=== PATIENT | female | born 1940 | race Caucasian/White ===

== ENCOUNTER → 2018-07-22 06:56 | Outpatient (CLI) | payer MEDICARE, SELFPAY ==
--- NOTE | 2018-07-22 07:00 | PET_ITS ---
EXAMINATION: FDG PET CT INDICATIONS: A 77-year-old female with reported history of pulmonary nodularity. COMPARISON EXAMINATION: CT of the chest report dated 07/03/18. INDEX LESION SIZE SUV INTERPRETATION Right upper hemithorax pulmonary parenchyma, right upper lobe 11.1 mm (frame 196) 2.5 Fulfills quantitative criteria for viable neoplasm, histopathologic analysis is recommended NON-INDEX LESION SIZE SUV INTERPRETATION Right lobe thyroid gland (n = 2) 11.4 mm largest (frame 220) 6.2 (max) May be further investigated with thyroid ultrasound TECHNIQUE: Following the intravenous administration of 16.2 mCi of F-18 deoxyglucose via the right antecubital fossa, multiplanar image acquisitions of the neck, chest, abdomen and pelvis to level of mid thigh, obtained at one hour post radiopharmaceutical administration contemporaneously interpreted with the current CT of the neck, chest, abdomen and pelvis to level of mid thigh, dated 07/22/[address] of the chest report dated 07/03/18 reveal: SERUM GLUCOSE LEVEL: 80 mg/dl. HEIGHT: 66 inches. WEIGHT: 150 lbs. FINDINGS: 1. A nodular focus of increased glucose metabolism is demonstrated in the right upper posterior hemithorax pulmonary parenchyma-right upper lobe generating a calculated maximum standard uptake value of 2.5. The maximal axial diameter of the corresponding parenchymal density on review of CT of the chest dated 07/22/18 is 11.1 mm (transverse). 2. Two separate foci of increased glucose concentration are defined in the right anterior neck, which appear to be contiguous to the superior and inferior poles of the right lobe of the thyroid colloid. The calculated maximum standard uptake value is 6.2. The maximal axial diameter of the corresponding largest, most conspicuous metabolic abnormality is approximately 11.4 mm (AP). 3. Normal physiologic distribution of the radiopharmaceutical is apparent in the hepatic (2.1) and splenic parenchyma, both renal units, bladder and visualized intestinal tract. There is uniform distribution of the radiopharmaceutical concentration defined in the visualized cerebellar hemispheres and cerebral cortical structures.? Diffuse intestinal tract activity is noted throughout all four quadrants of the abdominal-pelvic retroperitoneum, mesentery consistent with normal physiologic distribution of the radiopharmaceutical. Prominent glucose metabolism is defined in the anterior neck, laryngeal structures contiguous to the cricopharyngeus musculature most consistent with physiologic distribution of the radiopharmaceutical. Focal increased labeled glucose metabolism is manifest in the left upper anterolateral chest wall contiguous to the second rib corresponding to visualized trauma-fracture. Pertinent CT findings are as follows. CHEST: There are no additional parenchymal densities-nodules demonstrating discernible increased glucose metabolism. Several subcentimeter parenchymal densities are non-glucose avid. Atherosclerotic calcification is defined in the thoracic aorta without evidence of dilatation, aneurysm formation. Bilateral subcentimeter axillary and scattered mediastinal soft tissue densities demonstrate no evidence of facilitated glucose metabolism. A parenchymal density noted in the right posterobasilar lung field is ametabolic. ABDOMEN AND PELVIS: Atherosclerotic calcification is defined in the abdominal aorta without evidence of dilatation, aneurysm formation. Pelvic arterial calcification is observed. The uterus appears surgically absent. Bilateral subcentimeter inguinal soft tissue densities reveal no evidence of enhanced glucose metabolism. Calcification is defined in the right kidney. SKELETAL: Degenerative changes defined in the cervical, thoracic and lumbar spine demonstrate no evidence for glucose hypermetabolism. PET/PET/CT Tumor Base -Thigh Init IMPRESSION: 1. ABNORMAL EXAMINATION INDICATIVE OF MALIGNANT-VIABLE NEOPLASM. 2. Increased glucose concentration observed in the right upper posterior hemithorax pulmonary parenchyma, right upper lobe fulfills quantitative criteria for viable neoplasm. Histopathologic analysis is recommended. (Machuca et al, Annals of Internal Medicine, 138:724, 2003). 3. Facilitated FDG concentration defined in the right lobe of the thyroid gland in two separate nodular presentations may be further investigated with thyroid ultrasound secondary to the quantitative degree of uptake. (Hari Ortiz et al, Journal of Clinical Endocrinology and Metabolism 88:4100, 2003). 4. The increase in radiopharmaceutical concentration noted in the left chest wall-second rib is commensurate with activated leukocytes associated with trauma-fracture. (Blair et al, Osteoporosis International 13:755, 2002). Electronic Signature Everardo Hopkins D.O. Electronically Signed: Everardo Hopkins DO at 23:35 EST Tel , Service support ,
== END ==
PROVIDERS: Family Provider Family Medicine; PCP Family Medicine; Visit Provider Internal Medicine Pulmonary Disease
DX: R91.1 Solitary pulmonary nodule (principal)
CPT/HCPCS: 78815; A9552

== ENCOUNTER 2018-09-10 08:47 | Day surgery (SDC) | payer MEDICARE, SELFPAY ==
[2018-08-23 13:06] VITALS: BMI 25.2
--- NOTE | 2018-09-06 15:48 | EKG12_ITS ---
Test Reason : PRE OP Blood Pressure : / mmHG Vent. Rate : 071 BPM Atrial Rate : 071 BPM P-R Int : 210 ms QRS Dur : 098 ms QT Int : 426 ms P-R-T Axes : 076 -32 044 degrees QTc Int : 462 ms Sinus rhythm with 1st degree A-V block Left axis deviation Septal infarct (cited on or before 22-SEP-2002), age undetermined Abnormal ECG Confirmed by KIMO RODRIGUEZ, MESHA ([id number]), editorial director DARLYN FORD ([id number]) on 09/09/2018 10:34:17 AM Referred By: Yemi Dotson Confirmed By:MESHA MALIN MD
[2018-09-06 17:23] LABS: Hematocrit 43.4 % (37-47); Hemoglobin 13.4 g/dl (12.0-15.0); Mean Corp Hgb Conc 30.9 g/gl (32-36); Mean Corpuscular Hgb 27.3 pg (27.0-32.0); Mean Corpuscular Volume 88.4 fL (81-99); Mean Platelet Vol. 11.4 fl (6.2-12.0); Platelet Count 275 K/mm3 (150-450); RBC Distribution Width CV 15.1 % (11.6-14.6); Red Blood Count 4.91 M/mm3 (4.2-5.4); White Blood Count 8.5 K/mm3 (4.4-11.0)
[2018-09-06 17:27] LABS: Scan Indicated on CBC? Y/N NO
[2018-09-06 17:38] LABS: Anion Gap 7 (5-15); BUN 15 mg/dL (7-18); BUN/Creat Ratio 13.6 RATIO (10-20); Calcium,Total 8.8 mg/dL (8.5-10.1); Chloride 107 mmol/L (98-107); EST Glomerular Filtration Rate 51 mL/min (>60); Est Glom Filt Rate - Afr Amer 62 mL/min (>60); Glucose 87 mg/dL (74-106); Potassium 3.8 mmol/L (3.5-5.1); Sodium Level 142 mmol/L (136-145)
[2018-09-10] VITALS (15 sets, daily range): BP systolic 116–138; BP diastolic 57–74; PULSE 76–88; RESP 16–18; TEMP 36.2–37; O2SAT 91–100; BMI 24.9
--- NOTE | 2018-09-10 | THYROID_PTH ---
PATIENT: MONICA HIRSCH [place] [facility] [id number] AGE/SX: 77/F ROOM: RE09/10/[address]: Dr. Yemi Dotson MD : [id number] BED: DIS: 09/11/2018 SPEC #: [id number] RECD: 09/10/18 11:50 STATUS: ELDER DANISH #: [id number] REBEKAH: 09/10/18 00:[address]: Yemi Dotson DEPT: SURGICAL PATHOLOGY RECD BY: Pura Chacon ENTERED: 09/10/18 12:10 SP TYPE: THYROID OTHR DR: Renuka Ferrari, COP EXAMINER-C Tissues: Thyroid gland, NOS Procedures: Frozen Section (charge) Surgery Specimen Level V HEADER OPERATION: Right thyroidectomy lobectomy PRE-OP DIAGNOSIS: Multinodular goiter TISSUE SUBMITTED: Thyroid right lobe FROZEN SECTION DIAGNOSIS Right thyroid, lobectomy: Chronic lymphocytic thyroiditis. 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 See comment. Chronic lymphocytic thyroiditis. Multinodular goiter. Two perithyroidal lymph nodes with reactive changes. SJ:ok 09/11/18 COMMENT H?rthle cell adenoma is noted in the superior portion of the thyroid lobe (not grossly identified). The grossly identifiable nodule at the lower pole is consistent with chronic lymphocytic thyroiditis. Case has been reviewed in consultation with Dr. Spaulding who concurs with the above diagnosis. IDC:AM MICROSCOPIC DESCRIPTION Slides are reviewed. GROSS DESCRIPTION Received fresh for frozen section diagnosis labeled with the patient's name is a specimen designated right thyroid. The specimen consists of a thyroid lobectomy specimen weighing 4.3 gm and measuring 4 x 2.5 x 1 cm. No external parathyroid tissue is identified. The specimen is inked as follows: anterior margin - blue, posterior margin - black and isthmus margin - yellow. Serial sections reveal an ill-defined do-white mass in the lower portion of the lobe close to the isthmus measuring 0.5 cm in greatest dimension. A section of mass with surrounding tissue is submitted for frozen section diagnosis. The entire specimen is submitted in five cassettes as follows: 1 - frozen section, 2-5 - rest of the specimen (2?containing most superior portion and 5 containing most inferior portion). / LUIS ARMANDO:ok 09/10/18 TC:1 CPT: 88722, 25713
[2018-09-10] MEDS: Cefazolin 2 GM in 0.9% Normal Saline 100 ML IV (10:50)
[2018-09-10] MEDS: BUPIVACAINE LIPOSOME/PF 20 ML VIAL OPERA.SITE (11:46)
--- NOTE | 2018-09-10 11:49 | OP.PCM_ITS ---
Problem List (1) Multinodular goiter (nontoxic) Status: Acute Report of Operation Date of Procedure: 09/10/18 Pre-Operative Diagnosis: Dominant right thyroid nodule in the face of multinodular goiter Post-Operative Diagnosis: Same Surgery/Procedure Performed:: Right thyroid lobectomy and isthmusectomy Type of Anesthesia:: General Anesthesiologist: Vishnu Ramos Specimen's removed: Right thyroid and isthmus Description of Procedure: Patient was brought into the operating room placed in the supine position under excellent general endotracheal intubation, was placed under the shoulder blades and neck was extended and sterilely prepped draped in usual fashion cervical incision was made. Electrocautery was used to create subplatysmal flaps. Gelpi retractor was placed inside the wound. Midline strap muscles were opened. Starting on the right side and went to the inferior pole vessels and took these down with a harmonic dissector. Rotated the gland from lateral to medial standpoint took the middle thyroidal vein down and then went to the superior pole vessels and took these down with a harmonic dissector. Identified the superior parathyroid gland in the inferior parathyroid gland. As I rotated the gland from lateral to medial standpoint I stay directly on the gland and I did not identify the recurrent laryngeal nerve. I took the gland off of Joseph's ligaments with the harmonic dissector and then went to the left side and detach the isthmus from the left side of the gland with a harmonic dissector I inspected it I did not see any tissue that looked like parathyroid tissue and I sent it to pathology for frozen section. This came back as a lymphocytic thyroiditis with no signs of malignancy. I placed a small piece of Surgicel into the wound. Midline strap muscles were brought together with a 2-0 Vicryl. Exparel was injected generously throughout the subcutaneous tissues. Subpl atysmal flaps were brought together with 3-0 Vicryl. Deep dermal stitches of 3- 0 Vicryl. A running 4-0 Monocryl on the skin. Dermabond was applied sterile dressings were applied and the patient tolerated the procedure well. - Admit VTE Documentation VTE Present on Admission: No VTE Mechan Device Prophylaxis: SCD's VTE Pharm Prophylaxis ordered?: No Reason prophylaxis not ordered:: Treatment Not Indicated
[2018-09-10] MEDS: Lactated Ringers 1,000 ML 60 ML IV (13:35)
[2018-09-10] MEDS: Cefazolin 1 GM/50 ML BAG IV ×2 (15:55→21:26)
[2018-09-10] MEDS: Acetaminophen 500 MG Tablet 1000 MG PO (16:25)
[2018-09-10] MEDS: oxyCODONE 5 MG Tablet 10 MG PO (21:02)
[2018-09-10] MEDS: tiZANidine HCl 2 MG Tablet 4 MG PO (21:19)
[2018-09-10] MEDS: Amitriptyline 25 MG Tablet 50 MG PO (21:20)
[2018-09-11] MEDS: oxyCODONE 5 MG Tablet 10 MG PO ×2 (02:10→06:35)
[2018-09-11 02:15] VITALS: BP 130/60; PULSE 70; RESP 18; TEMP 36.3; O2SAT 100
[2018-09-11] MEDS: Lactated Ringers 1,000 ML 60 ML IV (03:48)
[2018-09-11 08:46] VITALS: BP 107/65; PULSE 85; RESP 16; TEMP 36.6; O2SAT 96
--- NOTE | 2018-09-11 09:54 | PCM.DC.GS ---
Discharge Diet: Light diet - advance as tolerated, Soft diet - 2 days Discharge Activity: May not drive while taking narcotic pain medications. May shower in (days): 1 Lifting Restrictions: 10 pounds Call your doctor if your incision/area has: Continuous Slow Oozing, Sudden Increased Bleeding, Increased Pain/ Swelling, Increased Redness, Foul Smelling Discharge, Swelling at the incision site Call your doctor if you observe: Fever of 101 or Higher, Coldness, Increased Pain Suture Line Care: Avoid Pulling/Pushing, Avoid Pinching/Bending Cleanse incision/area with: Soap & Water Allergies/Adverse Reactions: Allergies alendronate sodium [From Fosamax] Allergy (Mild, Verified 08/23/18 13:12) Unknown atorvastatin [From Lipitor] Allergy (Mild, Verified 08/23/18 13:12) Unknown benzocaine [From Lanacane [place]] Allergy (Mild, Verified 08/23/18 13:12) Unknown carbamazepine Allergy (Mild, Verified 08/23/18 13:12) Unknown estradiol [From Estrace] Allergy (Mild, Verified 08/23/18 13:12) Unknown fluticasone [From Advair Diskus] Allergy (Mild, Verified 08/23/18 13:12) Unknown moxifloxacin [From Avelox] Allergy (Mild, Verified 08/23/18 13:12) Unknown nitrofurantoin Allergy (Mild, Verified 08/23/18 13:12) Unknown salmeterol [From Advair Diskus] Allergy (Mild, Verified 08/23/18 13:12) Unknown simvastatin [From Zocor] Allergy (Mild, Verified 08/23/18 13:12) Unknown Sulfa (Sulfonamide Antibiotics) Adverse Reaction (Mild, Verified 09/09/18 10:07) chest pain Medications to take at Discharge amitriptyline 25 mg tablet 50 mg PO BID 08/23/18 amlodipine 5 mg tablet 5 mg PO DAILY 08/23/18 fluticasone propionate 50 mcg/actuation nasal spray,suspension 1 spray INTRANASAL DAILY PRN 08/23/18 loratadine 10 mg tablet 10 mg PO DAILY 08/23/18 omeprazole 20 mg capsule,delayed release 20 mg PO DAILY 08/23/18 Tizanidine HCl 4 mg PO QHS 09/03/18 Oxycodone [Oxyir] 10 mg PO Q6H PRN PRN 3 Days #10 tablet 09/11/18 The following prescriptions were given: Oxycodone [Oxyir] 10 mg PO Q6H PRN PRN 3 Days #10 tablet PRN Reason: Severe Pain (6-02/27) Orders to be completed after discharge: 12 Lead EKG [[facility]] Time Frame: 09/03/18, Facility: [facility], Location: Cardiovascular Services Basic Metabolic Profile (BMP) Time Frame: 09/03/18, Location: Laboratory CBC-Complete Blood Cnt No Diff Time Frame: 09/03/18, Location: Laboratory Primary Care Physician: Renuka Ferrari NP-C [Primary Care Provider] - Test Results: Test results from this visit will be discussed in further detail at your follow-up appointment, if applicable. Please Follow Up With: Katherine Patel PA-C - [phone] When: 10 days Proposed Discharge Date: 09/11/18
--- NOTE | 2018-09-11 09:56 | PCM.PN.SRG ---
Patient Problems: Active and Suspected Problems (Last Reviewed 08/23/18 @ 13:27 by Yemi Dotson MD) Multinodular goiter (nontoxic) (Acute) Subjective: Patient evaluated resting comfortably in bed. She notes very minimal amount of incisional discomfort. She denies nausea, vomiting. - Physical Exam General: Alert, Oriented x3, Cooperative Neck: - - Anterior cervical incision c/d/i. No erythema or infection noted Vital Signs Temp Pulse Resp BP Pulse Ox 97.8 F 85 16 107/65 96 09/11/18 08:46 09/11/18 08:46 09/11/18 08:46 09/11/18 08:46 09/11/18 08:46 Oxygen Flow Rate (L/min) 2 Oxygen Delivery Method Nasal Cannula Weight: 154 lb 8.705 oz Body Mass Index (BMI) 24.9 Intake and Output for Last 24 Hours 09/09/18 09/10/18 09/11/18 23:59 23:59 23:59 Intake Total 1703 / 1703 1388 / 1388 Output Total 200 / 200 Balance 1503 / 1503 1388 / 1388 Medical Necessity - Tobacco Use Smoking Status: Never smoker Tobacco Use: Non-smoker Assessment/Plan All Active Problems (Last Reviewed 08/23/18 @ 13:27 by Yemi Dotson MD) Multinodular goiter (nontoxic) (Acute) I am following this patient in conjunction with Dr. Dotson. S/p right thyroid lobectomy Work on nasal canula removal Ready for discharge
[2018-09-11 10:35] VITALS: BP 106/72; PULSE 88; RESP 16; TEMP 37.2; O2SAT 92
[2018-09-11] MEDS: Amitriptyline 25 MG Tablet 50 MG PO (10:43)
== END 2018-09-11 10:51 | disposition home or self-care (01) ==
LOC: SDC 08:47 → AC 08:48 → MS3 11:25
PROVIDERS: Family Provider Family Medicine; PCP Family Medicine; Referring Provider Surgery; Visit Provider Surgery
PROC: (CPT 60220; principal; 2018-09-10 10:45)
DX: E04.2 Nontoxic multinodular goiter (principal); E06.3 Autoimmune thyroiditis; I10 Essential (primary) hypertension
CPT/HCPCS: 60220; 36415; 80048; 85027; 88307; 88331; 93005; J7120; J2405

== ENCOUNTER → 2018-10-24 | Outpatient (CLI) | payer MEDICARE, SELFPAY ==
[2018-09-10 14:54] VITALS: BMI 24.9
--- NOTE | 2018-10-24 12:54 | CT_ITS ---
STUDY: CT CHEST WITHOUT CONTRAST REASON FOR EXAM: Female, 78 years old. Follow-up of pulmonary nodule. RADIATION DOSAGE (If Supplied By Facility): CTDIvol = ( 8.46 ) mGy, DLP = ( 291.67 ) mGycm TECHNIQUE: Transaxial imaging was performed without the administration of intravenous contrast material. Multiplanar coronal and sagittal images were reformatted. Individualized dose optimization techniques were used for this CT. COMPARISON: Comparison is made with prior PET scan dated July 22, 2018. FINDINGS: Mild increased markings at the lung apices suggestive of bilateral apical scarring. There is a 1.1 cm x 0.8 cm spiculated nodule in the posterior aspect of the right upper lobe as seen on axial image #37. This abuts the pleural surface. There is also evidence of a 4.8 mm spiculated nodule in the right upper lobe laterally as seen on axial image #66. A spiculated nodule measuring 1 cm x 1.2 cm also seen along the anterior aspect of the right middle lobe abutting the cardiac surface. This is best seen on axial image #81. There is no demonstrated pleural abnormality. Normal heart and pericardium. There are multiple small lymph nodes within the mediastinum, which are normal in size and morphology most compatible with reactive lymph hyperplasia. Normal hilar regions. Normal unenhanced pulmonary arteries. There is atherosclerotic calcification of the aortic arch with tortuosity and elongation of the aortic arch and descending thoracic aorta. There are mild degenerative changes of the thoracic spine. There is no demonstrated abnormality of the visualized upper abdomen. CT/Chest without Contrast IMPRESSION: Pulmonary nodules in the right hemithorax as described. Electronically Signed: Wilmer Matos, at 15:36 EDT , Service support ,
== END | disposition home or self-care (01) ==
LOC: CT 12:53
PROVIDERS: Family Provider Nurse Practitioner Primary Care; PCP Nurse Practitioner Primary Care; Referring Provider Internal Medicine Pulmonary Disease; Visit Provider Internal Medicine Pulmonary Disease
DX: R91.1 Solitary pulmonary nodule (principal)
CPT/HCPCS: 71250

== ENCOUNTER → 2019-01-24 12:52 | Outpatient (CLI) | payer MEDICARE, SELFPAY ==
[2018-09-10 14:54] VITALS: BMI 24.9
--- NOTE | 2019-01-24 12:58 | CT_ITS ---
STUDY: CT CHEST WITHOUT CONTRAST REASON FOR EXAM: Female, 78 years old. Pulmonary nodules. RADIATION DOSAGE (If Supplied By Facility): CTDIvol = ( 10.14 ) mGy, DLP = ( 354.69 ) mGycm TECHNIQUE: Transaxial imaging was performed without the administration of intravenous contrast material. Multiplanar coronal and sagittal images were reformatted. Individualized dose optimization techniques were used for this CT. COMPARISON: CT of the chest, October 24, 2018. PET/CT scan, July 22, 2018. FINDINGS: The lungs are well expanded. There is minimal bilateral apical pleural scarring unchanged from prior study. There is a pleural-based density posteriorly in the right upper lobe measuring 0.8 x 0.6 x 0.7 cm which correlates with an area of increased activity on the PET scan. This appears stable when compared to the prior CT. There is a 4 mm soft tissue density in the right middle lobe best seen on image 62 of series 4 unchanged from prior exam. Other smaller nodules are seen in both the right upper and right middle lobe appears stable. The anterior right middle lobe there is again seen a 1 cm nodular density on image 80 which appears stable and unchanged. There is no demonstrated pleural abnormality. Normal heart and pericardium. There are calcifications of the coronary arteries. Normal mediastinum. Normal hilar regions. Normal unenhanced pulmonary arteries. There is atherosclerotic calcification of the aortic arch with tortuosity and elongation of the aortic arch and descending thoracic aorta. Minimal degenerative changes of the thoracic spine. Type I hiatal hernia. The upper abdomen is otherwise grossly unremarkable and unchanged. CT/Chest without Contrast IMPRESSION: Stable findings when compared to the previous CT. Electronically Signed: Andi Calderón DO at 17:15 EDT Tel [phone], Service support ,
== END ==
PROVIDERS: Family Provider Family Medicine; PCP Family Medicine; Referring Provider Internal Medicine Pulmonary Disease; Visit Provider Internal Medicine Pulmonary Disease
DX: R91.8 Other nonspecific abnormal finding of lung field (principal)
CPT/HCPCS: 71250

== ENCOUNTER → 2019-05-29 13:11 | Outpatient (CLI) | payer MEDICARE, SELFPAY ==
[2018-09-10 14:54] VITALS: BMI 24.9
--- NOTE | 2019-05-29 13:18 | CT_ITS ---
STUDY: CT CHEST WITHOUT CONTRAST REASON FOR EXAM: Female, 78 years old. FOLLOW UP LUNG NODULES RADIATION DOSAGE (If Supplied By Facility): CTDIvol = ( 7.93 ) mGy, DLP = ( 289.18 ) mGycm TECHNIQUE: Transaxial imaging was performed without the administration of intravenous contrast material. Individualized dose optimization techniques were used for this CT. COMPARISON: 10/24/2018, 01/24/2019. FINDINGS: Mild hyperexpansion of the lungs. Minimal scarring in both apices, stable. Stable elongated density, 2.2 cm size on coronal images, along the posterior surface of the right upper lobe. Stable 4 mm nodule in the anterior left apex, axial image 34. Stable small pleural scar across the lateral left upper lobe, axial image 37. Stable 1 cm nodule in the anterior right lung base, axial image 87. Several other scattered tiny nodules are also stable. No infiltrates or effusions. Normal heart and pericardium. Normal mediastinum. Normal hilar regions. Normal unenhanced pulmonary arteries. Normal aorta arch and descending thoracic aorta. Normal osseous structures. There is no demonstrated abnormality of the visualized upper abdomen. CT/Chest without Contrast IMPRESSION: COPD. Stable pulmonary nodules. Suggest a total of 2 years surveillance. Electronically Signed: Babatunde Vaughn MD at 18:41 EST , Service support ,
== END ==
PROVIDERS: Family Provider Nurse Practitioner Primary Care; PCP Nurse Practitioner Primary Care; Referring Provider Internal Medicine Pulmonary Disease; Visit Provider Internal Medicine Pulmonary Disease
DX: R91.8 Other nonspecific abnormal finding of lung field (principal)
CPT/HCPCS: 71250

== ENCOUNTER → 2019-11-27 12:43 | Outpatient (CLI) | payer MEDICARE, SELFPAY ==
[2018-09-10 14:54] VITALS: BMI 24.9
--- NOTE | 2019-11-27 12:52 | CT_ITS ---
STUDY: CT CHEST WITHOUT CONTRAST REASON FOR EXAM: Female, 79 years old. LUNG NODULE F/U,HTN, SURG-brain shunt with removal, thyroidectomy RADIATION DOSAGE (If Supplied By Facility): CTDIvol = ( 8.10 ) mGy, DLP = ( 289.43 ) mGycm TECHNIQUE: Transaxial imaging was performed without the administration of intravenous contrast material. Multiplanar coronal and sagittal images were reformatted. Individualized dose optimization techniques were used for this CT. COMPARISON: Comparison is made with prior study dated May 29, 2019. FINDINGS: Stable small benign appearing bilateral axillary lymph nodes. Stable mild degree of emphysematous changes and scarring at the lung apices. Stable 2.2 cm linear nodular density in the posterior aspect of the right upper lobe. Stable 4 mm noncalcified nodule in the anterior aspect of the left lung apex as well as a small pleural scar at the left apex. There is no demonstrated pleural abnormality. There are calcifications of the coronary arteries. There are multiple small lymph nodes within the mediastinum, which are normal in size and morphology most compatible with reactive lymph hyperplasia. Normal hilar regions. Normal unenhanced pulmonary arteries. There is atherosclerotic calcification of the aortic arch . There are multi-level degenerative changes of the thoracic spine. There is no demonstrated abnormality of the visualized upper abdomen. CT/Chest without Contrast IMPRESSION: Stable examination. Electronically Signed: Wilmer Matos, at 14:09 EDT , Service support ,
== END ==
PROVIDERS: PCP Nurse Practitioner Primary Care; Referring Provider Internal Medicine Pulmonary Disease; Visit Provider Internal Medicine Pulmonary Disease
DX: R91.1 Solitary pulmonary nodule (principal)
CPT/HCPCS: 71250